=== PATIENT | male | born 1980 | race Caucasian/White ===

== ENCOUNTER → 2016-09-03 | Outpatient (CLI) | payer OTHER ==
[~2016-09-03] MED LIST: ACETAMINOPHEN PO; BISACODYL10 MG/SUPP PR; CERTAGEN PO; CIPRO XR 500 M500 MG PO; COLACE PO; MACROBID 100 M100 MG PO; MILK OF MAGNESIA PO; OMNICEF PO; PHENERGAN PR; PROTONIX PO; REGLAN PO; VITAMIN C PO; [UNRECOGNIZED DRUG - OTHER]; [UNRECOGNIZED DRUG - OTHER] IV
--- NOTE | ~2016-09-03 | CT4 ---
[facility] A Service of [facility] & [facility] RADIOLOGY TEXT RESULTS PATIENT: HANNA HARRIS [facility] 84 UNIT #: [id number] AGE: [address]: Kai Hensley MD SEX: M ORDER DR: [id number] [facility] [address] [place], [place] [address] [id number] O MR#: [id number] Acc #: [id number] NAME: HANNA HARRIS : 1980 SEX: M STUDY DATE/TIME: 09/03/2016 13:12 UNIT: [facility] ROOM: STUDY DESCRIPTION: CT Abd and Pelv Wo Cont Attending Physician: Kai Hensley M.D. Referring Physician: Kai Hensley M.D. Ordering Physician: Kai Hensley M.D. Primary Care Physician: Joseph Feldman Jr., M.D. MEDICAL IMAGING REPORT This report is preliminary unless electronic signature is present EXAM CT of the abdomen and pelvis without contrast. DATE OF EXAM 09/03/2016 HISTORY Kidney stones on outside ultrasound. Prior right kidney surgery for renal stone. TECHNIQUE NOTE: This CT exam was performed with one or more of the following radiation dose reduction techniques: automatic exposure control, adjustment of mA and/or kV according to patient size, and iterative reconstruction. FINDINGS CT of abdomen and pelvis was performed without contrast and is compared to the most recent available prior CT, 08/07/2005. CT ABDOMEN: Severe right lower thoracic and lumbar scoliosis with lakisha fixation from the visualized lower thoracic spine to the lower lumbar spine. Mild right hydronephrosis. Multiple stones in the right kidney measure up to 1.1 cm in the mid right kidney and 1 cm in the lower pole, with additional subcentimeter stones in the mid and lower right kidney. No left renal calculi. Mild right ureteral dilatation, but no ureteral stones are identified. The lung bases are clear. The liver, spleen, pancreas, and adrenal glands are normal. Normal caliber abdominal aorta. No ascites. No bowel dilatation. 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 [facility]. [facility] A Service of [facility] & [facility] RADIOLOGY TEXT RESULTS PATIENT: HANNA HARRIS LOCATION: [facility] : 84 UNIT #: [id number] AGE: [address]: Kai Hensley MD SEX: M ORDER DR: Small rectocele. IMPRESSION 1. Mild right hydronephrosis and right ureteral dilatation down to the right lower quadrants urinary diversion. Multiple nonobstructing stones in the mid and lower right kidney measuring up to 1.1 cm in the mid right kidney and 1 cm in the lower pole with additional subcentimeter stones in the mid and lower right kidney. 2. No ureteral stones or left renal calculi. 3. Marked right lower thoracic and upper lumbar curve with multilevel thoracolumbar spine fusion. 4. Pelvic and bilateral hip dysplasia with superior bilateral hip dislocation. 5. Small rectocele. Dictated by... Booker Patrick M.D. THIS IS AN ELECTRONICALLY VERIFIED REPORT Booker Patrick M.D. at 09/03/2016 11:19 PM IMTIAZ/lissa TD: 09/03/2016 22:48 JOB #: [id number] MEDICAL IMAGING REPORT COPY
== END | disposition home or self-care (01) ==
LOC: CCAT 12:18
DX: N20.0 Calculus of kidney (principal); N13.30 Unspecified hydronephrosis; N28.82 Megaloureter; K62.3 Rectal prolapse; Q65.89 Other specified congenital deformities of hip; Q65.1 Congenital dislocation of hip, bilateral; Z98.1 Arthrodesis status
CPT/HCPCS: 74176